=== PATIENT | female | born 1990 | race Two or more races ===

== ENCOUNTER 2019-08-26 08:51 | Inpatient (IN) | payer BC ==
[~2019-08-26] VITALS: Ht 165.1 cm; Wt 115.5 kg
[2019-08-26 09:23] VITALS: BP 129/84
[2019-08-26] MEDS ORDERED: PREN1TAB60 PO (10:30)
[2019-08-26] MEDS ORDERED: NPH (10:30)
[2019-08-26 11:36] LABS: MICROSCOPIC INDICATED
[2019-08-26 11:40] LABS: CULTURE INDICATED? NO
[2019-08-26] MEDS ORDERED: LACTATED RINGERS 1,000 ML IVBOLUS ONE (13:00)
[2019-08-26] MEDS ORDERED: METOCLOPRAMIDE 5 MG/ML, 2ML ONE (13:00)
[2019-08-26] MEDS ORDERED: SODIUM CITRATE/CITRIC ACID 30 ML UDC PO ONE (13:00)
[2019-08-26] MEDS ORDERED: METOCLOPRAMIDE 5 MG/ML, 2ML IV ONE (13:00)
[2019-08-26] MEDS ORDERED: SODIUM CITRATE/CITRIC ACID 30 ML UDC ONE (13:00)
[2019-08-26] MEDS ORDERED: NEWBORN KIT ONE (13:03)
[2019-08-26] MEDS ORDERED: LACTATED RINGERS 1,000 ML IV SCH (13:10)
[2019-08-26 13:22] LABS: BASOPHILS # (AUTO) 0.01 x10^3/uL (0-0.1); BASOPHILS % (AUTO) 0 % (0-1); EOSINOPHILS # (AUTO) 0.02 x10^3/uL (0-0.4); EOSINOPHILS % (AUTO) 0 % (1-7); LYMPHOCYTES # (AUTO) 1.56 x10^3/uL (1-3.4); LYMPHOCYTES % (AUTO) 13 % (22-44); MD NO; MEAN CORPUSCULAR HEMOGLOBIN 28.4 pg (27.0-34.8); MEAN CORPUSCULAR HGB CONC 32.6 g/dL (32.4-35.8); MEAN CORPUSCULAR VOLUME 86.9 fL (80-100); MEAN PLATELET VOLUME 9.5 fL (7.4-10.4); MONOCYTES # (AUTO) 0.54 x10^3/uL (0.2-0.8); MONOCYTES % (AUTO) 4 % (2-9); NEUTROPHILS # (AUTO) 10.35 x10^3/uL (1.8-6.8); NEUTROPHILS % (AUTO) 83 % (42-75); PLATELET COUNT 261 x10^3/uL (130-400); RED BLOOD COUNT 4.32 x10^6/uL (3.82-5.3); RED CELL DISTRIBUTION WIDTH 15.7 % (9.6-15.2)
[2019-08-26] MEDS ORDERED: ONDANSETRON 2MG/ML, 2ML ONE (13:24)
[2019-08-26] MEDS ORDERED: CEFAZOLIN 1,000 MG ONE (13:24)
[2019-08-26] MEDS ORDERED: HYDROmorphone 2 MG/ML, 1ML ONE (13:24)
[2019-08-26] MEDS ORDERED: FENTANYL PF 100 MCG/2ML ONE (13:24)
[2019-08-26] MEDS ORDERED: OXYTOCIN 10 UNITS/ML, 1ML ONE (13:24)
[2019-08-26] MEDS ORDERED: SODIUM CHLORIDE 0.9% PF 10ML ONE ×2 (13:28)
[2019-08-26] MEDS ORDERED: OXYTOCIN 30U/ 0.9% NaCL 500ML 500 ML ONE (15:08)
[2019-08-26] MEDS: LACTATED RINGERS 1,000 ML IV SCH ×2 (16:59)
[2019-08-26] MEDS: OXYTOCIN 30U/ 0.9% NaCL 500ML 500 ML IV SCH (16:59)
[2019-08-26 17:00] VITALS: BP 138/82
[2019-08-26] MEDS ORDERED: BISACODYL 10 MG SUPP PR PRN (17:00)
[2019-08-26] MEDS ORDERED: ONDANSETRON 2MG/ML, 2ML IV PRN (17:00)
[2019-08-26] MEDS ORDERED: MEPERIDINE/PF 100 MG/ML IVPush PRN (17:00)
[2019-08-26] MEDS ORDERED: SIMETHICONE 80 MG CHEW TAB PO PRN (17:00)
[2019-08-26] MEDS ORDERED: OXYcodone/APAP 5/325MG TABLET PO PRN (17:00)
[2019-08-26] MEDS ORDERED: METHYLERGONOVINE 0.2 MG/ML IM PRN (17:00)
[2019-08-26] MEDS ORDERED: IBUPROFEN 600 MG TABLET PO PRN (17:00)
[2019-08-26] MEDS ORDERED: MORPHINE SULFATE 4 MG/ML, 1ML IVPush PRN (17:00)
[2019-08-26] MEDS ORDERED: morphine SULFATE 10 MG/ML, 1ML IVPush PRN (17:00)
[2019-08-26] MEDS ORDERED: MEPERIDINE/PF 50 MG/ML IVPush PRN (17:00)
[2019-08-26] MEDS ORDERED: MISOPROSTOL 200 MCG TABLET PR PRN (17:00)
[2019-08-26] MEDS: KETOROLAC 30 MG/1 ML IV SCH ×2 (17:49→23:54)
[2019-08-26 20:20] VITALS: BP 137/78
[2019-08-27 00:03] VITALS: BP 133/80
[2019-08-27] MEDS: LACTATED RINGERS 1,000 ML IV SCH ×6 (00:59→22:59)
[2019-08-27] MEDS: OXYTOCIN 30U/ 0.9% NaCL 500ML 500 ML IV SCH ×3 (02:59→22:59)
[2019-08-27 04:30] VITALS: BP 132/88
[2019-08-27 06:04] LABS: BASOPHILS # (AUTO) 0.03 x10^3/uL (0-0.1); BASOPHILS % (AUTO) 0 % (0-1); EOSINOPHILS # (AUTO) 0.03 x10^3/uL (0-0.4); EOSINOPHILS % (AUTO) 0 % (1-7); LYMPHOCYTES # (AUTO) 1.24 x10^3/uL (1-3.4); LYMPHOCYTES % (AUTO) 13 % (22-44); MD NO; MEAN CORPUSCULAR HEMOGLOBIN 28.6 pg (27.0-34.8); MEAN CORPUSCULAR HGB CONC 32.6 g/dL (32.4-35.8); MEAN CORPUSCULAR VOLUME 87.9 fL (80-100); MEAN PLATELET VOLUME 9.2 fL (7.4-10.4); MONOCYTES # (AUTO) 0.64 x10^3/uL (0.2-0.8); MONOCYTES % (AUTO) 6 % (2-9); NEUTROPHILS # (AUTO) 7.99 x10^3/uL (1.8-6.8); NEUTROPHILS % (AUTO) 81 % (42-75); PLATELET COUNT 216 x10^3/uL (130-400); RED BLOOD COUNT 3.85 x10^6/uL (3.82-5.3); RED CELL DISTRIBUTION WIDTH 15.9 % (9.6-15.2)
[2019-08-27] MEDS: KETOROLAC 30 MG/1 ML IV SCH ×3 (06:34→18:22)
[2019-08-27 08:42] VITALS: BP 120/77
[2019-08-27] MEDS: PRENATAL VIT/IRON/FA 1 EACH TABLET PO SCH (08:54)
[2019-08-27] MEDS: OXYcodone/APAP 5/325MG TABLET PO PRN ×3 (08:55→18:22)
[2019-08-27] MEDS: DOCUSATE 100 MG CAPSULE PO PRN (08:55)
[2019-08-27] MEDS ORDERED: DIPH,PERTUSS(ACELL),TET VAC/PF NC IM-VACC ONE (11:30)
[2019-08-27 20:30] VITALS: BP 117/73
[2019-08-28] MEDS: KETOROLAC 30 MG/1 ML IV SCH ×3 (00:21→13:12)
[2019-08-28] MEDS: LACTATED RINGERS 1,000 ML IV SCH ×3 (00:23→08:13)
[2019-08-28] MEDS: DOCUSATE 100 MG CAPSULE PO PRN (06:43)
[2019-08-28] MEDS: OXYTOCIN 30U/ 0.9% NaCL 500ML 500 ML IV SCH (08:13)
[2019-08-28 10:00] VITALS: BP 122/74
[2019-08-28] MEDS: PRENATAL VIT/IRON/FA 1 EACH TABLET PO SCH (10:00)
[2019-08-28] MEDS: OXYcodone/APAP 5/325MG TABLET PO PRN (13:12)
[2019-08-28] MEDS ORDERED: IBUP-1222 PO (13:25)
[2019-08-28] MEDS ORDERED: OXYC-302 PO (13:25)
== END 2019-08-28 14:00 | disposition home or self-care (01) | DRG 788 ==
LOC: LDOP 08:51 → LDIP 12:46 → 2NW 16:39
PROVIDERS: ADMIT Obstetrics & Gynecology Maternal & Fetal Medicine; ATTEND Obstetrics & Gynecology Maternal & Fetal Medicine
PROC: 10D00Z1 Extraction of Products of Conception, Low, Open Approach (ICD-10-PCS; principal; 2019-08-26)
DX: O42.92 Full-term premature rupture of membranes, unspecified as to length of time between rupture and onset of labor (principal); O24.424 Gestational diabetes mellitus in childbirth, insulin controlled; O34.211 Maternal care for low transverse scar from previous cesarean delivery; Z37.0 Single live birth; Z3A.38 38 weeks gestation of pregnancy; O99.89 Other specified diseases and conditions complicating pregnancy, childbirth and the puerperium; N73.6 Female pelvic peritoneal adhesions (postinfective); O99.214 Obesity complicating childbirth; Z83.3 Family history of diabetes mellitus; Z88.1 Allergy status to other antibiotic agents; Z91.040 Latex allergy status
CPT/HCPCS: 36415; 76815; 81001; 82803; 82947; 84112; 85025; 86850; 86900; 89060; 90715; G0378; J0690; J1170; J1885; J2405; J3010; J2590; J2765; J7120; Q0114